=== PATIENT | female | born 1965 | race Caucasian/White ===

== ENCOUNTER 2017-03-15 15:06 | Inpatient (IN) | payer MEDICARE, OTHER ==
[~2017-03-15] VITALS: Ht 167.6 cm; Wt 105.7 kg
[~2017-03-15 15:06] MED LIST: ACET-868 GT; ALBU2.5V13 HHN; AMIN30LI4 GT; AMIO200T GT; ASCO500S2 GT; BISA10SU8 RC; BLOO-697 IN; CARV3.12 GT; CHLO15MO2 MM; DEXT38GE12 PO; DOCU50LI GT; Doxycycline Hyclate PO; ENAL2.5T GT; EPOE40002 SQ; FERR300L GT; FURO40SO2 GT; HYDR-3326 GT; Heparin Sodium,Porcine SQ; INSU100I19 SQ; INSU100V11 SQ; IPRA0.2S9 HHN; LACT10SO7 GT; LEVO50TA8 GT; LORA1TAB82 GT; MAGN400O6 GT; MULT1TAB11 GT; MUPI22OI7; NA P133E RC; NITR0.4T6 SL; NUT.237L30 GT; PANT40SU2 GT; POLY15DR40 EACHEYE; POLY17PO4 GT; POTA20PA15 GT; TOBR40VI2 INH; TRAM50TA2 GT
--- NOTE | 2017-03-15 15:20 | NUR ---
AAOX3, BIB PA FROM [facility] FOR ABLAB WITH ELEVATED BUN. PT CAME IN WITH VENT. SETTINGS: AC=18, WT=767, FI02=35%, PEEP=5. RESP IS EVEN AND UNLABORED WITH NAD NOTED. SKIN IS WARM AND DRY. G-TUBE NOTED INTACT. AWAITING MD FOR EVAL. PATIENT PLACED ON MONITOR AND WILL CONTINUOUSLY MONITOR THE PATIENT.
--- NOTE | 2017-03-15 15:24 | NUR ---
PT PLACED INTO [facility] VENT VIA TRACH SIZE #7 PORTEX CUFFED. VENT SETTINGS BELLOW PER RT TRANSPORT: AC 18 VT 550 FIO2 35% PEEP +5 BREATH SOUNDS RHONCHI BILATERAL, SXN MOD. AMNT PALE YELLOW SEMI THICK SECRETIONS. KEELEY @ BEDSIDE. Addendum: 03/15/17 at 1558 by ERIKA GROVES RT Amended: Links added.
[2017-03-15] MEDS ORDERED: ACID1TAB12 GT (15:36)
[2017-03-15] MEDS ORDERED: INSU100I19 SQ (15:36)
[2017-03-15] MEDS ORDERED: TRAM50TA2 PO (15:36)
[2017-03-15] MEDS ORDERED: OMEP20CA10 PO (15:36)
[2017-03-15] MEDS ORDERED: LISI2.5T2 GT (15:36)
[2017-03-15] MEDS ORDERED: AMIO200T2 GT (15:36)
[2017-03-15] MEDS ORDERED: EPOE1VIA7 SQ (15:36)
[2017-03-15] MEDS ORDERED: FOLI1TAB16 GT (15:36)
[2017-03-15] MEDS ORDERED: BUME1TAB4 GT (15:36)
[2017-03-15] MEDS ORDERED: HEPA10009 SQ (15:36)
[2017-03-15] MEDS ORDERED: HYDR10SY12 GT (15:36)
[2017-03-15 16:00] LABS: BASOPHILS # (AUTO) 0.1 /CMM (0.0-0.2); BASOPHILS % (AUTO) 0.8 % (0.0-2.0); EOSINOPHILS # (AUTO) 0.6 /CMM (0.0-0.7); EOSINOPHILS % (AUTO) 7.4 % (0.0-6.0); HEMATOCRIT 31 % (33-45); HEMOGLOBIN 9.8 g/dL (11.5-14.8); LYMPHOCYTES # (AUTO) 0.7 /CMM (0.8-4.8); LYMPHOCYTES % (AUTO) 8.8 % (20.0-44.0); MEAN CORPUSCULAR HEMOGLOBIN 30 PG (26.0-33.0); MEAN CORPUSCULAR HGB CONC 32 g/dl (31.0-36.0); MEAN CORPUSCULAR VOLUME 93 fL (82-100); MONOCYTES # (AUTO) 0.4 /CMM (0.1-1.30); MONOCYTES % (AUTO) 5.5 % (2.0-12.0); NEUTROPHILS # (AUTO) 6.3 /CMM (1.8-8.9); NEUTROPHILS % (AUTO) 77.5 % (43.0-81.0); PLATELET COUNT (AUTO) 437 /CMM (150-450); WHITE BLOOD COUNT (AUTO) 8.1 K/uL (4.3-11.0)
[2017-03-15 16:14] LABS: INR 1.14 (0.87-1.13)
[2017-03-15 16:16] LABS: ALBUMIN 2.5 g/dL (3.4-5.0); BILIRUBIN,DIRECT 0.2 mg/dL (0.0-0.2); BILIRUBIN,TOTAL 0.4 mg/dL (0.2-1.0); CALCIUM, SERUM 9.5 mg/dL (8.5-10.1); CREATININE 1.3 mg/dL (0.6-1.3); TOTAL PROTEIN, SERUM 8.5 g/dL (6.4-8.2)
[2017-03-15 16:23] LABS: APPEARANCE,URINE Clear (CLEAR); BILIRUBIN,URINE Negative (NEGATIVE); BLOOD, URINE Trace-intact Ery/uL (NEGATIVE); COLOR,URINE Yellow (YELLOW); KETONES,URINE Negative (NEGATIVE); LEUKOCYTE ESTERASE ,URINE Small (NEGATIVE); NITRITE, URINE Negative (NEGATIVE); PH,URINE 5.5 (5.0-8.0); PROTEIN,URINE Negative (NEGATIVE); UGLUCOSE Negative (NEGATIVE); UROBILINOGEN,URINE 0.2 EU/dL (0.2)
--- NOTE | 2017-03-15 16:30 | NUR ---
Patient is resting comfortably in bed with eyes closed. Easily aroused. VSS
[2017-03-15 16:34] LABS: ADD URINE CULTURE YES; BACTERIA,URINE 2+ /HPF (None Seen); RBC,URINE 0-3 /HPF (0-2)
[2017-03-15 16:35] LABS: SQUAMOUS EPITHELIAL CELL,UR Few /HPF (None Seen)
[2017-03-15] MEDS ORDERED: FUROSEMIDE 40 MG/4 ML VIAL ONE (17:28)
[2017-03-15] MEDS ORDERED: FUROSEMIDE 40 MG/4 ML VIAL IV ONE (17:30)
--- NOTE | 2017-03-15 17:39 | NUR ---
REPORT GIVEN TO JARRETT FREEMAN FOR [facility] TELE [phone]
--- NOTE | 2017-03-15 17:50 | NUR ---
REPORT GIVEN TO JARRETT COLUNGA FOR COURTNEY.
[2017-03-15] MEDS ORDERED: ASPIRIN 325 MG TABLET PO ONE (18:00)
--- NOTE | 2017-03-15 18:00 | NUR ---
TRANSFERED TO TELE ADRIANNE VIA ACLS PROTOCOL. NO S/S OF DISTRESS NOTED. RESP EVEN AND UNLABIRED.
--- NOTE | 2017-03-15 18:27 | NUR ---
PT. TRANSFERRED FROM ER TO [facility] BED 2. PT. USED SAME [facility] VENT AND PLUGGED INTO RED OUTLET. KEELEY @ BEDSIDE. Addendum: 03/15/17 at 1829 by ERIKA GROVES RT Amended: Links added.
[2017-03-15 18:40] VITALS: BP 104/65
--- NOTE | 2017-03-15 18:40 | NUR ---
SYSTEMS DEVELOPER NOTES PATIENT IN BED WITH MECHANICAL VENT. VENT SETTINGS NOTED. NO SOB OR ACUTE DISTRESS NOTED. PATIENT SEEN AND EXAMINED BY GERMAN AYON. IV INTACT PATENT. NO ORDERS NOTED YET. G-TUBE INTACT PATENT. PATIENT ALERT, ORIENTED X2, ORIENTED TO ROOM. CALL LIGHT WITHIN REACH. BED IN LOW LOCKED POSITION. WILL ENDORSE TO PM SHIFT.
--- NOTE | 2017-03-15 19:20 | NUR ---
DOULA NOTES RECEIVED PATIENT IN BED , AWAKE, ALERT/ O X3. ABLE TO MOUTH WORDS, TRACH IS INTACT AND PATENT WITH MECHANICAL VENT, SUCTIONED PRN. RT AT BEDSIDE AT THIS TIME. NO SOB OR ACUTE DISTRESS NOTED. IV SITE ON RIGHT HAND , INTACT AND PATENT, WITH NO S/S OF INFILTRATION NOTED. G-TUBE INTACT PATENT. ASPIRATION PRECAUTION OBSERVED. BODY ASSESSMENT DONE. ALL NEEDS ATTENDED AND MET. KEPT COMFORTABLE. CALL LIGHT WITHIN REACH. WILL CONT TO MONITOR.
[2017-03-15 19:30] VITALS: BP 102/58
[2017-03-15] MEDS ORDERED: ALBUTEROL FS 2.5 MG/0.5 ML VIAL.NEB HHN PRN (19:30)
[2017-03-15] MEDS ORDERED: IPRATROPIUM NEB FS 0.5 MG/2.5 ML AMPUL.NEB HHN PRN (19:30)
[2017-03-15] MEDS ORDERED: NA PHOS,M-B/NA PHOS,DI-BA 1 EA ENEMA RC PRN (19:30)
[2017-03-15] MEDS ORDERED: HYDROCODONE/APAP 5/325MG 1 EACH TABLET GT PRN ×2 (19:30)
[2017-03-15] MEDS ORDERED: hydrOXYzine HCL SYRUP 10 MG/5 ML UDC GT PRN (19:30)
[2017-03-15] MEDS ORDERED: DEXTROSE 50%-WATER 50 ML DISP.SYRIN IV PRN (19:30)
[2017-03-15] MEDS ORDERED: TRAMADOL HCL 50 MG TABLET GT PRN (19:30)
[2017-03-15] MEDS ORDERED: MAGNESIUM HYDROXIDE 30 ML UDC GT PRN ×2 (19:30)
[2017-03-15] MEDS ORDERED: ONDANSETRON HCL/PF 4 MG/2 ML VIAL IVP PRN (19:30)
[2017-03-15] MEDS ORDERED: ACETAMINOPHEN 325 MG TABLET PO PRN (19:30)
[2017-03-15] MEDS ORDERED: MAG HYDROX/AL HYDROX/SIMETH 30 ML UDC GT PRN (19:30)
[2017-03-15] MEDS ORDERED: Z GUARD REMEDY 2 OZ OINT TP PRN (19:30)
[2017-03-15] MEDS ORDERED: BISACODYL SUPP (10 MG) 10 MG/SUPP.RECT SUPP.RECT RC PRN (19:30)
[2017-03-15] MEDS: IPRATROPIUM NEB FS 0.5 MG/2.5 ML AMPUL.NEB HHN SCH (20:05)
[2017-03-15] MEDS: ALBUTEROL FS 2.5 MG/0.5 ML VIAL.NEB HHN SCH (20:05)
[2017-03-15 20:28] VITALS: BP 102/58
--- NOTE | 2017-03-15 20:30 | NUR ---
[facility] AND SPOKE WITH JAMI, RN REFRIGERATION INSULATOR, REGARDING EPOGEN , PER JAMI EPOGEN WASN'T GIVEN TO THE PT AT THEIR FACILITY TODAY AND THAT THE SCHED FOR EPOGEN IS Q M,W,F @ 5PM, PHARMACIST MADE AWARE.
[2017-03-15] MEDS: POLYVINYL ALCOHOL 15 ML BOTTLE EACHEYE SCH (22:27)
[2017-03-15] MEDS: LISINOPRIL (5MG) 5 MG TABLET GT SCH (22:27)
[2017-03-15] MEDS ORDERED: IV SET PRIMARY PUMP SET 1 EA INFUS.SET MC ONE (22:29)
[2017-03-15] MEDS: CHLORHEXIDINE GLUCONATE 15 ML UDC MM SCH (22:29)
[2017-03-15] MEDS: CEFTRIAXONE 1 G in IV D5W 50 ML IV SCH (22:29)
[2017-03-15] MEDS: DOCUSATE SODIUM LIQ 100 MG/10 ML UDC GT SCH (22:30)
[2017-03-15] MEDS: EPOETIN ALFA (10,000 UNIT) 10,000 UNIT/ML VIAL SQ SCH (22:30)
[2017-03-15] MEDS: HEPARIN SODIUM, PORCINE 5000 UNITS/1 ML VIAL SQ SCH (22:50)
[2017-03-15] MEDS: BLOOD SUGAR DIAGNOSTIC 1 EACH STRIP IN SCH (23:10)
[2017-03-15] MEDS: INSULIN DETEMIR 100 UNIT/ML CARTRIDGE SQ SCH (23:20)
[2017-03-15] MEDS: INSULIN REGULAR, HUMAN 100 UNIT/ML 3 ML VIAL SQ PRN (23:22)
[2017-03-15] MEDS: GLYTROL 1,000 ML BAG GT SCH (23:26)
[2017-03-16 00:25] VITALS: BP 95/61
[2017-03-16] MEDS: IPRATROPIUM NEB FS 0.5 MG/2.5 ML AMPUL.NEB HHN SCH ×4 (00:43→19:53)
[2017-03-16] MEDS: ALBUTEROL FS 2.5 MG/0.5 ML VIAL.NEB HHN SCH ×4 (00:43→19:53)
--- NOTE | 2017-03-16 01:52 | NUR ---
PLACED A CALL TO DR. BEDOLLA AND RELAYED TROPONIN LEVEL : 0.541, WITH NO NEW ORDER AT THIS TIME. PT ASYMPTOMATIC, DENIES ANY CHEST PAIN. BP : 102/58 AND HR : 68.
[2017-03-16 04:00] VITALS: BP 86/58
[2017-03-16] MEDS: BLOOD SUGAR DIAGNOSTIC 1 EACH STRIP IN SCH ×3 (06:23→17:26)
--- NOTE | 2017-03-16 06:50 | NUR ---
TUBE MAKER NOTES PATIENT IN BED , AWAKE, ALERT/ O X3. ABLE TO MOUTH WORDS, TRACH IS INTACT AND PATENT WITH MECHANICAL VENT, SUCTIONED PRN. NO SOB OR ACUTE DISTRESS NOTED. IV SITE ON RIGHT HAND , INTACT AND PATENT, WITH NO S/S OF INFILTRATION NOTED. G-TUBE INTACT PATENT. ASPIRATION PRECAUTION OBSERVED. GOOD SKIN CARE RENDERED. ALL NEEDS ATTENDED AND MET. KEPT COMFORTABLE. CALL LIGHT WITHIN REACH. WILL ENDORSE TO NEXT SHIFT FOR COURTNEY.
[2017-03-16 06:53] LABS: BASOPHILS % (AUTO) 0.7 % (0.0-2.0); EOSINOPHILS # (AUTO) 0.4 /CMM (0.0-0.7); HEMATOCRIT 26 % (33-45); HEMOGLOBIN 8.5 g/dL (11.5-14.8); LYMPHOCYTES % (AUTO) 13.3 % (20.0-44.0); MEAN CORPUSCULAR HEMOGLOBIN 30 PG (26.0-33.0); MEAN CORPUSCULAR HGB CONC 33 g/dl (31.0-36.0); MEAN CORPUSCULAR VOLUME 92 fL (82-100); MONOCYTES # (AUTO) 0.5 /CMM (0.1-1.30); MONOCYTES % (AUTO) 6.4 % (2.0-12.0); NEUTROPHILS # (AUTO) 5.3 /CMM (1.8-8.9); NEUTROPHILS % (AUTO) 74.6 % (43.0-81.0); PLATELET COUNT (AUTO) 404 /CMM (150-450); RDW COEFFICIENT OF VARIATION 20.2 (11.5-15.0); RED BLOOD CELL COUNT(AUTO) 2.85 MIL/uL (4.0-5.2); WHITE BLOOD COUNT (AUTO) 7.2 K/uL (4.3-11.0)
[2017-03-16 07:08] LABS: CALCIUM, SERUM 9.1 mg/dL (8.5-10.1); CREATININE 1.2 mg/dL (0.6-1.3); MAGNESIUM 3.2 mg/dL (1.8-2.4); PHOSPHORUS 4.8 mg/dL (2.5-4.9); POTASSIUM 5.4 mmol/L (3.5-5.1)
[2017-03-16 07:14] LABS: THYROID STIMULATING HORMONE 7.616 uIU/mL (0.358-3.74)
--- NOTE | 2017-03-16 07:30 | NUR ---
R DEVELOPER NOTES RECEIVED PATIENT AWAKE ON BED, AOX3. ABLE TO MOUTH WORDS, ON MECH VENT;TRACH INTACT AND PATENT, SUCTION PRN. NO SOB OR ACUTE DISTRESS NOTED. BREATHING EVEN AND NON LABORED. RIGHT HAND HL, INTACT AND PATENT, FLUSHES WELL. G-TUBE INTACT PATENT. ON HOLD FOR NOW, PT FOR KUB TODAY. CALL LIGHT WITHIN REACH. WILL CONT TO MONITOR.
[2017-03-16 08:00] VITALS: BP 89/51
--- NOTE | 2017-03-16 08:17 | NUR ---
GRAPHIC ILLUSTRATOR NOTES KYM LOPEZ MADE AWARE ABOUT PATIENT'S ABNORMAL LAB RESULTS AND LOW BP 89/51. WITH NEW ORDER TO CHECK ALBUMIN LEVEL. ORDERS CARRIED OUT.
[2017-03-16] MEDS: FOLIC ACID 1 MG TABLET GT SCH (08:41)
[2017-03-16] MEDS: POLYVINYL ALCOHOL 15 ML BOTTLE EACHEYE SCH ×2 (08:41→17:22)
[2017-03-16] MEDS: MULTIVITAMINS,THERAPEUTIC 1 UDTAB TABLET GT SCH (08:41)
[2017-03-16] MEDS: ASPIRIN 81 MG TAB.CHEW GT SCH (08:41)
[2017-03-16] MEDS: ASCORBIC ACID 500 MG TABLET GT SCH (08:42)
[2017-03-16] MEDS: ACIDOPHILUS/BULGARICUS 1 EACH TAB.CHEW GT SCH ×2 (08:42→17:20)
[2017-03-16] MEDS: LEVOTHYROXINE SODIUM 50 MCG TABLET GT SCH (08:42)
[2017-03-16] MEDS: CHLORHEXIDINE GLUCONATE 15 ML UDC MM SCH ×2 (08:42→21:00)
[2017-03-16] MEDS: FERROUS SULFATE UDC 300 MG/5 ML UDC GT SCH ×3 (08:42→17:20)
[2017-03-16] MEDS: PANTOPRAZOLE 40 MG/PACK PACK GT SCH (08:42)
[2017-03-16] MEDS: TRAMADOL HCL 50 MG TABLET GT SCH ×2 (08:43→17:21)
[2017-03-16] MEDS: AMIODARONE HCL 200 MG TABLET GT SCH (08:43)
[2017-03-16] MEDS: LISINOPRIL (5MG) 5 MG TABLET GT SCH ×2 (08:44→17:00)
[2017-03-16] MEDS: HEPARIN SODIUM, PORCINE 5000 UNITS/1 ML VIAL SQ SCH (08:44)
[2017-03-16] MEDS ORDERED: LISINOPRIL (5MG) 5 MG TABLET PO SCH (09:00)
--- NOTE | 2017-03-16 09:30 | NUR ---
DIRECTOR OF CAPITAL GIVING NOTES MOISE CATHETER INSERTED ORDERED BY KYM LOPEZ. STOOL FOR OB COLLECTED AND SENT TO THE LAB.
--- NOTE | 2017-03-16 10:00 | NUR ---
HSE MANAGER NOTES S/B DR. CARVAJAL WITH NEW ORDERS MADE. PATIENT FOR ABD'L ULTRASOUND PARACENTESIS, AND CANCELLED KUB. CONSENT SIGNED BY PT'S .
[2017-03-16] MEDS ORDERED: ALBUMIN 25% 12.5 GM/50 ML BOTTLE IV ONE (11:00)
--- NOTE | 2017-03-16 11:03 | NUR ---
BUSINESS ANALYST INTERN NOTES PARACENTESIS STARTED AT BEDSIDE. TOLERATING WELL
--- NOTE | 2017-03-16 11:30 | NUR ---
RESISTANCE WELDING MACHINE OPERATOR NOTES PARACENTESIS OUTPUT 6,550 MLS. PATIENT'S VS 89/51, MT 60, RR 20, TEMP 98. ALBUMIN IV STARTED ORDERED BY KYM LOPEZ.
[2017-03-16] MEDS ORDERED: IV SET PRIMARY 1 EA INFUS.SET MC ONE ×2 (11:56→17:29)
[2017-03-16 12:00] VITALS: BP 97/54
[2017-03-16] MEDS: ALBUMIN 25% 25 GM in PREMIX 1 EA IV SCH ×2 (12:17→17:23)
[2017-03-16] MEDS: INSULIN REGULAR, HUMAN 100 UNIT/ML 3 ML VIAL SQ PRN ×2 (12:19→17:27)
[2017-03-16 14:10] LABS: CREATININE, URINE < 13.0 MG/DL (30.0-125.0); UREA NITROGEN,URINE RANDOM 518 mg/dL (350-1000)
--- NOTE | 2017-03-16 14:12 | NUR ---
PULL OUT OPERATOR NOTES PATIENT'S GT RESIDUAL 200ML, GT FEEDING HELD. NOTIFIED BINDING FOLDER MACHINE JOHN, NO NEW ORDERS MADE. WILL CONTINUE TO MONITOR.
--- NOTE | 2017-03-16 14:45 | NUR ---
SCALDER NOTES GT FEEDING STARTED, WELL TOLERATED.
[2017-03-16 15:48] LABS: HEMOGLOBIN 8.9 g/dL (11.5-14.8)
[2017-03-16 16:00] VITALS: BP 91/49
[2017-03-16 17:01] LABS: GLUCOSE,BODY FLUID 160 mg/dL; PROTEIN, BODY FLUID 4.4 G/DL
[2017-03-16] MEDS ORDERED: IV SET PRIMARY PUMP SET 1 EA INFUS.SET MC ONE (17:28)
[2017-03-16 17:33] LABS: WBC, BODY FLUID 250 /cu. mm. (0-200)
[2017-03-16 17:45] LABS: APPEARANCE,SPUN,BODY FLUID CLEAR (CLEAR)
[2017-03-16 17:57] LABS: POLYNUCLEAR, BODY FLUID 53 % (0-25)
[2017-03-16 17:58] LABS: MACROPHAGES, BODY FLUID 7
--- NOTE | 2017-03-16 19:30 | NUR ---
GRANTS SPECIALIST NOTES ALL NEEDS ATTENDED AND ANTICIPATED. TURN AND REPOSITION Q2H. ENDORSED TO INCOMING SHIFT FOR CONTINUITY OF CARE.
--- NOTE | 2017-03-16 19:31 | NUR ---
RN NOTE RECEIVED REPORT. PT AWAKE AND RESPONSIVE, NO S/S OF ANY DISTRESS AT THIS TIME. DENIES CP/SOB/DIZZINESS. ON TRACHE/MECH VENT- SETTINGS ACCURATE. F/C INTACT AND DRAINING YELLOW URINE. G TUBE INTACT, FEEDING CONTINUES.. WILL CONT TO MONITOR. TELE SHOWS V-PACING IN 60'S.
[2017-03-16] MEDS: CEFTRIAXONE 1 G in IV D5W 50 ML IV SCH (22:17)
[2017-03-16] MEDS: DOCUSATE SODIUM LIQ 100 MG/10 ML UDC GT SCH (22:18)
[2017-03-16] MEDS: INSULIN DETEMIR 100 UNIT/ML CARTRIDGE SQ SCH (22:20)
[2017-03-17] MEDS: ALBUTEROL FS 2.5 MG/0.5 ML VIAL.NEB HHN SCH ×4 (01:39→19:31)
[2017-03-17] MEDS: IPRATROPIUM NEB FS 0.5 MG/2.5 ML AMPUL.NEB HHN SCH ×4 (01:39→19:31)
--- NOTE | 2017-03-17 02:05 | NUR ---
RN NOTE PT RESTING COMFORTABLY IN BED WITH EYESE CLOSED. NO DISTRESS NOTED AT THIS TTIME. WILL CONT TO MONITOR.
[2017-03-17] MEDS: INSULIN REGULAR, HUMAN 100 UNIT/ML 3 ML VIAL SQ PRN ×4 (02:16→17:29)
[2017-03-17] MEDS: GLYTROL 1,000 ML BAG GT SCH (03:48)
[2017-03-17] MEDS ORDERED: PROCHLORPERAZINE EDISYLATE 10 MG/2 ML VIAL IVP PRN (06:00)
[2017-03-17] MEDS: BLOOD SUGAR DIAGNOSTIC 1 EACH STRIP IN SCH ×4 (06:50→17:30)
--- NOTE | 2017-03-17 06:50 | NUR ---
RN NOTE NO SIGNIFICANT CHANGES OVERNIGHT. PT SLEPT WELL. NO S/S OF RESPIRATORY DISTRESS AT THIS TIME. VENT SETTINGS ACCURATE. SUCTIONING PROVIDED T/O SHIFT PRN. TOLERATING TUBE FEEDING WELL. IV INTACT AND PATENT. TELE SHOWS V PACING. KEPT CLEAN AND COMFORTABLE T/O SHIFT, WILL F/U WITH DAY SHIFT FOR COURTNEY.
[2017-03-17 07:02] VITALS: BP 128/64
--- NOTE | 2017-03-17 07:15 | NUR ---
SEWER HAND NOTES RECEIVED PATIENT IN BED, AWAKE. A/O X3. ON TELE MONITOR VPACING HR 60. PATIENT IS ON MECHANICAL VENT AC18 TV550 FiO2 36% PEEP 5 WITH PORTEX SIZE 7. PATIENT APPEARS ANXIOUS, NO SOB, SATING 98%. NO C/O PAIN AT THIS TIME. ON GLYTROL 45ML/HR, HOB ELEVATED. CALL LIGHT WITHIN REACH. WILL CONT TO MONITOR.
[2017-03-17 07:50] LABS: BASOPHILS % (AUTO) 0.5 % (0.0-2.0); EOSINOPHILS # (AUTO) 0.4 /CMM (0.0-0.7); EOSINOPHILS % (AUTO) 5.1 % (0.0-6.0); HEMATOCRIT 30 % (33-45); HEMOGLOBIN 9.7 g/dL (11.5-14.8); LYMPHOCYTES # (AUTO) 0.8 /CMM (0.8-4.8); LYMPHOCYTES % (AUTO) 10.9 % (20.0-44.0); MEAN CORPUSCULAR HEMOGLOBIN 29 PG (26.0-33.0); MEAN CORPUSCULAR HGB CONC 32 g/dl (31.0-36.0); MEAN CORPUSCULAR VOLUME 92 fL (82-100); MONOCYTES # (AUTO) 0.6 /CMM (0.1-1.30); MONOCYTES % (AUTO) 7.5 % (2.0-12.0); NEUTROPHILS # (AUTO) 5.8 /CMM (1.8-8.9); PLATELET COUNT (AUTO) 460 /CMM (150-450); RDW COEFFICIENT OF VARIATION 20.6 (11.5-15.0); WHITE BLOOD COUNT (AUTO) 7.6 K/uL (4.3-11.0)
[2017-03-17 08:00] VITALS: BP 128/64
[2017-03-17] MEDS: ACIDOPHILUS/BULGARICUS 1 EACH TAB.CHEW GT SCH ×2 (08:42→17:02)
[2017-03-17] MEDS: FERROUS SULFATE UDC 300 MG/5 ML UDC GT SCH ×3 (08:42→17:02)
[2017-03-17] MEDS: FOLIC ACID 1 MG TABLET GT SCH (08:42)
[2017-03-17] MEDS: LISINOPRIL (5MG) 5 MG TABLET GT SCH ×2 (08:43→17:00)
[2017-03-17] MEDS: ASPIRIN 81 MG TAB.CHEW GT SCH (08:43)
[2017-03-17] MEDS: MULTIVITAMINS,THERAPEUTIC 1 UDTAB TABLET GT SCH (08:43)
[2017-03-17] MEDS: LEVOTHYROXINE SODIUM 50 MCG TABLET GT SCH (08:43)
[2017-03-17] MEDS: PANTOPRAZOLE 40 MG/PACK PACK GT SCH (08:44)
[2017-03-17] MEDS: ASCORBIC ACID 500 MG TABLET GT SCH (08:44)
[2017-03-17] MEDS: CHLORHEXIDINE GLUCONATE 15 ML UDC MM SCH ×2 (08:45→21:49)
[2017-03-17] MEDS: TRAMADOL HCL 50 MG TABLET GT SCH ×2 (08:45→17:02)
[2017-03-17] MEDS: POLYVINYL ALCOHOL 15 ML BOTTLE EACHEYE SCH ×2 (08:53→17:12)
[2017-03-17] MEDS: LORAZEPAM 1 MG TABLET GT PRN ×2 (09:02→21:50)
[2017-03-17] MEDS: AMIODARONE HCL 200 MG TABLET GT SCH (09:02)
[2017-03-17 09:03] LABS: CREATININE 1.3 mg/dL (0.6-1.3); MAGNESIUM 3.3 mg/dL (1.8-2.4); PHOSPHORUS 4.6 mg/dL (2.5-4.9); POTASSIUM 4.7 mmol/L (3.5-5.1)
--- NOTE | 2017-03-17 09:07 | NUR ---
PATIENT APPEARS ANXIOUS AND RESTLESS. NO SOB, SATING 98%. SUCTION PRN. GIVEN ATIVAN 1MG VIA GT PRN, WILL REASSESS.
--- NOTE | 2017-03-17 09:52 | NUR ---
HEPARIN SQ WAS DC YESTERDAY 03/16/17. CHAIR FRAME BUILDER-AYON NOTES HEPARIN WAS PLACE ON HOLD. VTE SCORE 5. SPOKE TO CHAIR FRAME BUILDER-AYON ORDERED TO CONTINUE HEPARIN 5000 UNITS SQ Q12HR NOTED AND ACKNOWLEDGED.
[2017-03-17] MEDS: FUROSEMIDE 40 MG/4 ML VIAL IV SCH ×2 (10:27→17:03)
[2017-03-17] MEDS: HEPARIN SODIUM, PORCINE 5000 UNITS/1 ML VIAL SQ SCH ×2 (10:43→21:00)
--- NOTE | 2017-03-17 11:44 | NUR ---
PATIENT IS SEEN BY DR. MCGRATH TODAY, ORDERED TO HOLD TUBE FDG MN, EGD TOMORROW. NOTED AND ACKNOWLEDGED.
[2017-03-17 11:57] LABS: ABG BASE EXCESS 6.7 mmol/L; ABG PCO2 42.6 mmHg (35.0-45.0); ABG PH 7.478 (7.350-7.450); ABG PO2 100.4 mmHg (75.0-100.0); ABG TOTAL HEMOGLOBIN 9.8 G/dL (12.0-16.0); AaDO2 99.6 mmHg; COHb 0.9 % (0.5-1.5); MetHb 1.1 % (0.0-1.5); O2Hb 95.1 % (94.0-97.0); PEEP,BG 5 cm H2O; SITE, ABG Right Radial; VT, ABG 550 mL
[2017-03-17 12:00] VITALS: BP 101/46
--- NOTE | 2017-03-17 12:18 | NUR ---
BS 165MG/DL. GIVEN 3 UNITS INSULIN REGULAR SQ PER ISS COVERAGE.
--- NOTE | 2017-03-17 13:31 | NUR ---
PATIENT IS SEEN BY KYM-NANY TODAY, ORDERED CT ABDOMEN PELVIS WO CONTRAST, NOTED AND ACKNOWLEDGED.
[2017-03-17 16:00] VITALS: BP 99/47
--- NOTE | 2017-03-17 17:31 | NUR ---
BS 155MG/DL. GIVEN 2 UNITS INSULIN REGULAR SQ PER ISS COVERAGE.
--- NOTE | 2017-03-17 17:45 | NUR ---
PATIENT TRANSPORTER TO CT SCAN
--- NOTE | 2017-03-17 18:16 | NUR ---
ADJUNCT FACULTY FOR MEDICAL TERMINOLOGY CLOSING NOTES PATIENT IN BED IS BACK FROM RADIOLOGY DEPT. FOR CT ABDOMEN/PELVIS WO CONTRAST. VENT SETTINGS REMAINS THE SAME, TOLERATING WELL, NO SOB NOTED. BLOOD SUGAR MONITORED, NO S/S OF HYPO/HYPERGLYCEMIA NOTED. V-PACING HR 70 ON TELE MONITOR. CALL LIGHT WITHIN REACH. FOR EGD TOMORROW 03/18/17, CONSENT FORM WAS SIGNED AND PLACE IN THE CHART. HOLD GTUBE FEEDING MN ORDERED. WILL ENDORSE TO TEACHER TUTOR RN FOR CONTINUITY OF CARE.
--- NOTE | 2017-03-17 19:05 | NUR ---
RN NOTE RECEIEVD REPORT. PT IN NO DISTRESS AT THIS TIME, DENIES SOB/N/V. VENT SETTINGS ACCURATE. IV INTACT AND PATENT. FAMILY AT BEDSIDE. TELE SHOWING V-PACING. G TUBE INTACT AND PATENT, FEEDING CONTINUES. CALL LIGHT IN REACH, WILL CONT TO MONITOR.
[2017-03-17 20:30] VITALS: BP 105/59
--- NOTE | 2017-03-17 21:00 | NUR ---
RN NOTE DUE MEDS GIVEN. LEVEMIR HELD DUE TO NPO AT MIDNIGHT. NO S/S OF HYPO/HYPER-GLYCEMIA. HEPARIN HELD DUE TO EGD TOMORROW.
[2017-03-17] MEDS: DOCUSATE SODIUM LIQ 100 MG/10 ML UDC GT SCH (21:49)
[2017-03-17] MEDS: CEFTRIAXONE 1 G in IV D5W 50 ML IV SCH (21:49)
[2017-03-17] MEDS: INSULIN DETEMIR 100 UNIT/ML CARTRIDGE SQ SCH (21:50)
[2017-03-18] VITALS (8 sets, daily range): BP systolic 92–107; BP diastolic 48–62
[2017-03-18] MEDS ORDERED: IV D5/ 0.9% NACL 1,000 ML IV PRN
[2017-03-18] MEDS ORDERED: IV D5/0.45 NACL 1,000 ML IV ONE
[2017-03-18] MEDS: BLOOD SUGAR DIAGNOSTIC 1 EACH STRIP IN SCH ×5 (00:55→23:57)
[2017-03-18] MEDS: ALBUTEROL FS 2.5 MG/0.5 ML VIAL.NEB HHN SCH ×4 (01:16→20:35)
[2017-03-18] MEDS: IPRATROPIUM NEB FS 0.5 MG/2.5 ML AMPUL.NEB HHN SCH ×4 (01:16→20:35)
[2017-03-18] MEDS ORDERED: IV D5/ 0.9% NACL 1,000 ML IV ONE (01:21)
[2017-03-18] MEDS ORDERED: IV SET PRIMARY PUMP SET 1 EA INFUS.SET MC ONE ×2 (01:22→11:12)
--- NOTE | 2017-03-18 06:54 | NUR ---
RN NOTE NO SIGNIFICANT CHANGES THIS SHIFT. PT RESTING WITH EYES CLOSED, NO S/S O F ANY DISTRESS AT THIS TIME. ON [facility] VENT - SETTINGS ACCURATE. TELE SHOWING V-PACING IN 60'S. F/C INTACT AND DRAINING. IV INTACT AND PATENT, TOLERATING FLUIDS WELL. KEPT NPO SINCE FL, FOR EGD TODAY. KEPT CLEAN AND COMFORTABLE. REPOSITIONED Q2HRS. CALL LIGHT IN REACH.
[2017-03-18 07:11] LABS: BASOPHILS # (AUTO) 0.1 /CMM (0.0-0.2); BASOPHILS % (AUTO) 0.8 % (0.0-2.0); EOSINOPHILS # (AUTO) 0.5 /CMM (0.0-0.7); EOSINOPHILS % (AUTO) 7.7 % (0.0-6.0); HEMATOCRIT 26 % (33-45); HEMOGLOBIN 8.2 g/dL (11.5-14.8); LYMPHOCYTES # (AUTO) 0.8 /CMM (0.8-4.8); LYMPHOCYTES % (AUTO) 14.1 % (20.0-44.0); MEAN CORPUSCULAR HEMOGLOBIN 29 PG (26.0-33.0); MEAN CORPUSCULAR HGB CONC 32 g/dl (31.0-36.0); MEAN CORPUSCULAR VOLUME 92 fL (82-100); MONOCYTES # (AUTO) 0.5 /CMM (0.1-1.30); MONOCYTES % (AUTO) 7.9 % (2.0-12.0); NEUTROPHILS # (AUTO) 4.1 /CMM (1.8-8.9); NEUTROPHILS % (AUTO) 69.5 % (43.0-81.0); PLATELET COUNT (AUTO) 350 /CMM (150-450); RDW COEFFICIENT OF VARIATION 20.3 (11.5-15.0); WHITE BLOOD COUNT (AUTO) 5.9 K/uL (4.3-11.0)
--- NOTE | 2017-03-18 07:15 | NUR ---
SUPERVISOR CLAIMS NOTES RECEIVED PATIENT IN BED, SLEEPING, AROUSES EASILY. ON VENT WITH THE SAME SETTINGS. NOT IN DISTRESS. TELE MONITOR V PACING HR 60. GTUBE FEEDING HELD, FOR EGD TODAY. APPEARS COMFORTABLE IN BED, NO MOANING NOTED. CALL LIGHT WITHIN REACH. WILL CONT TO MONITOR. ON CONTACT ISOLATION FOR ESBL URINE.
[2017-03-18 07:35] LABS: CALCIUM, SERUM 8.8 mg/dL (8.5-10.1); CREATININE 1.2 mg/dL (0.6-1.3); MAGNESIUM 3.2 mg/dL (1.8-2.4); PHOSPHORUS 4.4 mg/dL (2.5-4.9); POTASSIUM 4.2 mmol/L (3.5-5.1)
[2017-03-18] MEDS: ACIDOPHILUS/BULGARICUS 1 EACH TAB.CHEW GT SCH ×2 (08:43→16:35)
[2017-03-18] MEDS: CHLORHEXIDINE GLUCONATE 15 ML UDC MM SCH ×2 (08:43→21:26)
[2017-03-18] MEDS: FOLIC ACID 1 MG TABLET GT SCH (08:43)
[2017-03-18] MEDS: LEVOTHYROXINE SODIUM 50 MCG TABLET GT SCH (08:43)
[2017-03-18] MEDS: LISINOPRIL (5MG) 5 MG TABLET GT SCH ×2 (08:44→16:38)
[2017-03-18] MEDS: POLYVINYL ALCOHOL 15 ML BOTTLE EACHEYE SCH ×2 (08:45→16:37)
[2017-03-18] MEDS: FERROUS SULFATE UDC 300 MG/5 ML UDC GT SCH ×3 (08:45→16:36)
[2017-03-18] MEDS: AMIODARONE HCL 200 MG TABLET GT SCH (08:45)
[2017-03-18] MEDS: ASPIRIN 81 MG TAB.CHEW GT SCH (08:46)
[2017-03-18] MEDS: HEPARIN SODIUM, PORCINE 5000 UNITS/1 ML VIAL SQ SCH ×2 (08:46→23:55)
[2017-03-18] MEDS: ASCORBIC ACID 500 MG TABLET GT SCH (08:48)
[2017-03-18] MEDS: TRAMADOL HCL 50 MG TABLET GT SCH ×2 (08:49→16:38)
[2017-03-18] MEDS: MULTIVITAMINS,THERAPEUTIC 1 UDTAB TABLET GT SCH (08:49)
[2017-03-18] MEDS: PANTOPRAZOLE 40 MG/PACK PACK GT SCH (08:49)
--- NOTE | 2017-03-18 08:56 | NUR ---
ASPIRIN, HEPARIN SQ NON ADMINISTERED. PATIENT TO HAVE EGD PROCEDURE TODAY.
[2017-03-18 08:58] LABS: INR 1.21 (0.87-1.13); PROTHROMBIN TIME 13.1 SECS (9.5-12.7)
[2017-03-18] MEDS ORDERED: MEROPENEM 500 MG in IV NS 0.9% 50 ML IV SCH (09:00)
[2017-03-18 09:54] LABS: IRON, SERUM 30 ug/dl (50-175); TOTAL IRON BINDING CAPACITY 175 ug/dl (250-450)
[2017-03-18] MEDS: LEVOFLOXACIN 750 MG /D5W 150ML 750 MG in PREMIX 1 EA IV SCH (11:13)
[2017-03-18] MEDS: INSULIN REGULAR, HUMAN 100 UNIT/ML 3 ML VIAL SQ PRN ×2 (12:30→17:46)
--- NOTE | 2017-03-18 12:30 | NUR ---
BS 195MG/DL. INSULIN COVERAGE NON ADMINISTERED, GTUBE FEEDING WAS HELD, FOR EGD TODAY. PATIENT HX OF DIABETES.
[2017-03-18] MEDS ORDERED: ROCURONIUM BROMIDE 50 MG/5 ML ONE (13:04)
--- NOTE | 2017-03-18 13:20 | NUR ---
EGD PROCEDURE BY DR. GAMBLE IN PROGRESS.
--- NOTE | 2017-03-18 13:50 | NUR ---
POST EGD, DR. GAMBLE ORDERED TO RESUME TUBE FEEDING, NOTED AND ACKNOWLEDGED.
[2017-03-18] MEDS: GLYTROL 1,000 ML BAG GT SCH (13:51)
[2017-03-18] MEDS: EPOETIN ALFA (10,000 UNIT) 10,000 UNIT/ML VIAL SQ SCH (16:05)
--- NOTE | 2017-03-18 17:46 | NUR ---
BS 193MG/DL. GIVEN 3 UNITS INSULIN REGULAR SQ PER ISS COVERAGE.
--- NOTE | 2017-03-18 18:55 | NUR ---
SUBSTATION SUPERVISOR CLOSING NOTES PATIENT IN BED, AWAKE, A/O X3. ON TELE MONITOR V PACING HR 64. VENT SETTINGS REMAINS THE SAME, BREATHING TREATMENT GIVEN BY RT. SUCTION PRN. BLOOD SUGAR MONITORED, NO S/S OF HYPO/HYPERGLYCEMIA. IV IN RIGHT WRIST PATENT AND INTACT, ON ANTIBIOTIC WITH NO ADVERSE REACTION. AFEBRILE. PATIENT HAD BOWEL MOVEMENT TODAY, PERINEAL CARE PROVIDED. TURN AND REPOSITION, ON ISOFLEX BED. MOISE CATH INTACT, DRAINING TO GRAVITY, URINE CLEAR AND YELLOW. GTUBE FEEDING GLYTROL AT 45ML/HR, TOLERATING WELL. AT THE BED SIDE. ON CONTACT ISOLATION ESBL URINE, CONTACT PRECAUTION OBSERVED. PATIENT IS SEEN BY DR. ANABELA HARGROVE TODAY FOR CONSULT. WILL ENDORSE TO SEISMOMETER OPERATOR RN FOR CONTINUITY OF CARE.
--- NOTE | 2017-03-18 19:15 | NUR ---
PRESCHOOL TEACHER'S ASSISTANT OPENING NOTES: RECEIVED PT IN BED AWAKE A/O X3 WITH AT BEDSIDE. ON TELE MONITOR AND IS V PACING AT HR 60. VENT SETTINGS ARE: AC 18, TV 550, FIO2 36%, PEEP 5, PORTEX #7. IV IS IN R WRIST #20 AND IS PATENT AND INTACT. NO SIGNS OR SYMPTOMS OF DISTRESS NOTED AT THIS TIME. PT IS ON ISOFLEX BED. MOISE CATH IS INTACT WITH DRAINAGE. PT HAS G TUBE FEEDING OF GLYTROL AT 45 ML/HR AND IS TOLERATING WELL. KEPT CLEAN, DRY, AND COMFORTABLE. CALL LIGHT WITHIN PT'S REACH. BED KEPT IN LOCKED, LOWEST POSITION, AND SIDE RAILS X2 UP. WILL CONTINUE TO MONITOR PT.
[2017-03-18] MEDS: DOCUSATE SODIUM LIQ 100 MG/10 ML UDC GT SCH (21:26)
--- NOTE | 2017-03-18 21:26 | NUR ---
BUNCHER HAND NOTES: PT REFUSED COLACE 20ML. EXPLAINED TO PATIENT THE RISKS AND BENEFITS OF MEDS.
[2017-03-18] MEDS: INSULIN DETEMIR 100 UNIT/ML CARTRIDGE SQ SCH (21:41)
[2017-03-19] MEDS: INSULIN REGULAR, HUMAN 100 UNIT/ML 3 ML VIAL SQ PRN ×3 (00:11→18:09)
[2017-03-19 00:41] VITALS: BP 103/66
[2017-03-19] MEDS: IPRATROPIUM NEB FS 0.5 MG/2.5 ML AMPUL.NEB HHN SCH ×3 (01:20→13:23)
[2017-03-19] MEDS: ALBUTEROL FS 2.5 MG/0.5 ML VIAL.NEB HHN SCH ×3 (01:20→13:23)
[2017-03-19 04:12] VITALS: BP 102/50
[2017-03-19] MEDS: BLOOD SUGAR DIAGNOSTIC 1 EACH STRIP IN SCH ×3 (05:22→18:12)
[2017-03-19 06:55] VITALS: BP 105/54
--- NOTE | 2017-03-19 07:01 | NUR ---
OPTICAL SALES ASSOCIATE CLOSING NOTES: ALL NEEDS WERE ATTENDED. PT IN BED ASLEEP. ON TELE READING V PACING AT 60. CALL LIGHT WITHIN PT'S REACH. BED KEPT IN LOCKED, LOWEST POSITION, AND SIDE RAILS X2 UP. PT KEPT CLEAN, DRY, AND COMFORTABLE. IV IS ON R WRIST #20 AND IS PATENT AND INTACT. PT'S BLOOD SUGAR WAS 146. 2 UNITS OF HUMULIN R INSULIN WAS GIVEN. VENT SETTINGS ARE AC:18, TV: 550, FI02: 36%, PEEP: 5. PORTEX #7 FOR PT'S TRACH. PT IS NPO. GTUBE FEEDING OF GLYTROL AT 45ML/HR. HELD FEEDING DUE TO 100ML RESIDUAL. MOISE CATH OUTPUT WAS 450ML. WILL ENDORSE TO AM NURSE FOR CONTINUITY OF CARE.
--- NOTE | 2017-03-19 07:30 | NUR ---
RECEIVED PT. ALERT,ON VENT,SETTINGS UNCHANGED.F/C TO GRAVITY DRAINAGE.
[2017-03-19 07:40] LABS: BASOPHILS % (AUTO) 0.7 % (0.0-2.0); EOSINOPHILS # (AUTO) 0.5 /CMM (0.0-0.7); EOSINOPHILS % (AUTO) 7.3 % (0.0-6.0); HEMATOCRIT 28 % (33-45); HEMOGLOBIN 8.8 g/dL (11.5-14.8); LYMPHOCYTES # (AUTO) 0.7 /CMM (0.8-4.8); LYMPHOCYTES % (AUTO) 11.5 % (20.0-44.0); MEAN CORPUSCULAR HEMOGLOBIN 29 PG (26.0-33.0); MEAN CORPUSCULAR HGB CONC 32 g/dl (31.0-36.0); MEAN CORPUSCULAR VOLUME 92 fL (82-100); MONOCYTES # (AUTO) 0.5 /CMM (0.1-1.30); MONOCYTES % (AUTO) 7.4 % (2.0-12.0); NEUTROPHILS # (AUTO) 4.7 /CMM (1.8-8.9); NEUTROPHILS % (AUTO) 73.1 % (43.0-81.0); PLATELET COUNT (AUTO) 370 /CMM (150-450); RED BLOOD CELL COUNT(AUTO) 2.99 MIL/uL (4.0-5.2); WHITE BLOOD COUNT (AUTO) 6.5 K/uL (4.3-11.0)
[2017-03-19 08:03] LABS: CALCIUM, SERUM 8.6 mg/dL (8.5-10.1); CREATININE 1.3 mg/dL (0.6-1.3); POTASSIUM 4.1 mmol/L (3.5-5.1)
--- NOTE | 2017-03-19 09:00 | NUR ---
SPOUSE AT BEDSIDE.
--- NOTE | 2017-03-19 10:00 | NUR ---
TUBE FEEDING OFF FOR SOMETIME IN AM RESIDUALS HIGH.DR. HOOKER INFORMED.
[2017-03-19] MEDS: HEPARIN SODIUM, PORCINE 5000 UNITS/1 ML VIAL SQ SCH (11:11)
[2017-03-19] MEDS: FERROUS SULFATE UDC 300 MG/5 ML UDC GT SCH ×3 (11:13→18:09)
[2017-03-19] MEDS: CHLORHEXIDINE GLUCONATE 15 ML UDC MM SCH (11:13)
[2017-03-19] MEDS: ASCORBIC ACID 500 MG TABLET GT SCH (11:13)
[2017-03-19] MEDS: LEVOTHYROXINE SODIUM 50 MCG TABLET GT SCH (11:14)
[2017-03-19] MEDS: ACIDOPHILUS/BULGARICUS 1 EACH TAB.CHEW GT SCH ×2 (11:14→18:10)
[2017-03-19] MEDS: TRAMADOL HCL 50 MG TABLET GT SCH ×2 (11:14→18:10)
[2017-03-19] MEDS: ASPIRIN 81 MG TAB.CHEW GT SCH (11:15)
[2017-03-19] MEDS: LISINOPRIL (5MG) 5 MG TABLET GT SCH ×2 (11:15→17:00)
[2017-03-19] MEDS: PANTOPRAZOLE 40 MG/PACK PACK GT SCH (11:15)
[2017-03-19] MEDS: MULTIVITAMINS,THERAPEUTIC 1 UDTAB TABLET GT SCH (11:15)
[2017-03-19] MEDS: FOLIC ACID 1 MG TABLET GT SCH (11:15)
[2017-03-19] MEDS: LEVOFLOXACIN 750 MG /D5W 150ML 750 MG in PREMIX 1 EA IV SCH (11:26)
[2017-03-19] MEDS: POLYVINYL ALCOHOL 15 ML BOTTLE EACHEYE SCH ×2 (11:27→18:11)
[2017-03-19 12:00] VITALS: BP 102/42
[2017-03-19] MEDS ORDERED: FUROSEMIDE 40 MG/4 ML VIAL IV SCH (12:30)
--- NOTE | 2017-03-19 14:30 | NUR ---
TUBE FEEDING RESTARTED AT 1430 DUE TO LEVAQUIN MED.
[2017-03-19] MEDS: GLYTROL 1,000 ML BAG GT SCH (14:32)
[2017-03-19 16:00] VITALS: BP 102/57
[2017-03-19 17:30] VITALS: BP 102/57
[2017-03-19] MEDS: AMIODARONE HCL 200 MG TABLET GT SCH (17:30)
--- NOTE | 2017-03-19 18:00 | NUR ---
VENT SETTINGS UNCHANGED,DC PHOTOS DONE EXCEPT FOR SACRAL AREA SPOUSE REFUSING AT THIS TIME.F/C OUTPUT GOOD.
--- NOTE | 2017-03-19 19:00 | NUR ---
REPORT CALLED TO FACILITY.
--- NOTE | 2017-03-19 20:04 | NUR ---
MS/RN OPENING NOTES PATIENT IN BED ABLE TO VERBALIZE NEEDS. NO S/S OF SOB OR DISTRESS. RECEIVED ENDORSEMENT FROM AM RN REGARDING PLAN OF CARE. WILL CONTINUE TO MONITOR. Addendum: 03/19/17 at 2007 by COLLEEN WU RN PLS DISREGARD ABOVE NOTES.IN ERROR
--- NOTE | 2017-03-19 20:08 | NUR ---
TELE/RN OPENING NOTES PATIENT IN BED ON ISOLATION DUE TO ESBL. ALERT, AWAKE AND ABLE TO MAKE SOUNDS AND W/ GOOD EYE CONTACT. CAN FOLLOW SIMPLE COMMANDS AND RESPOND WITH NOD. RECVEIVED [facility] AND AM RN GAVE REPORT WILL REMOVE IV ON SITE AND TELE MONITOR. AND CONTINUE TO TAKE PICTURE OF BACK SIDE .WILL CONTINUE TO MONITOR AND ASSIST IN D/C .
--- NOTE | 2017-03-19 20:55 | NUR ---
TELE/RN NOTES TRANSPORTATION ARRIVED 2054 WITH 2 EMT AND RT FOR [facility]REPORTED VENT SETTING,BS W/ COVERAGE.BELONGINGS CHECKS AND MEDICATION RECONCILLAION. PATIENT FAMILY INFORMED AND MADE AWARE.
== END 2017-03-19 21:20 | DRG 280 ==
LOC: ER 15:07 → TELE 17:31
PROVIDERS: ADMIT Contractor; ATTEND Contractor
PROC: 5A1955Z Respiratory Ventilation, Greater than 96 Consecutive Hours (ICD-10-PCS; 2017-03-15)
PROC: 0W9G3ZZ Drainage of Peritoneal Cavity, Percutaneous Approach (ICD-10-PCS; 2017-03-16)
PROC: 0DB68ZX Excision of Stomach, Via Natural or Artificial Opening Endoscopic, Diagnostic (ICD-10-PCS; principal; 2017-03-18 14:00)
DX: I21.4 Non-ST elevation (NSTEMI) myocardial infarction (principal); I50.23 Acute on chronic systolic (congestive) heart failure; E44.0 Moderate protein-calorie malnutrition; E87.1 Hypo-osmolality and hyponatremia; G71.0 Muscular dystrophy; J96.12 Chronic respiratory failure with hypercapnia; J96.11 Chronic respiratory failure with hypoxia; N39.0 Urinary tract infection, site not specified; N17.9 Acute kidney failure, unspecified; I42.9 Cardiomyopathy, unspecified; R18.8 Other ascites; Z99.11 Dependence on respirator [ventilator] status; I25.10 Atherosclerotic heart disease of native coronary artery without angina pectoris; I48.91 Unspecified atrial fibrillation; R13.10 Dysphagia, unspecified; Z93.1 Gastrostomy status; Z93.0 Tracheostomy status; I11.0 Hypertensive heart disease with heart failure; E03.9 Hypothyroidism, unspecified; D64.9 Anemia, unspecified; E11.9 Type 2 diabetes mellitus without complications; Z68.37 Body mass index [BMI] 37.0-37.9, adult; B35.3 Tinea pedis; D25.2 Subserosal leiomyoma of uterus; D69.2 Other nonthrombocytopenic purpura; E66.01 Morbid (severe) obesity due to excess calories; I34.0 Nonrheumatic mitral (valve) insufficiency; I87.2 Venous insufficiency (chronic) (peripheral); K76.0 Fatty (change of) liver, not elsewhere classified
CPT/HCPCS: 31720; 36415; 36600; 71010-TC; 76942-TC; 80048-TC; 80061-TC; 80076-TC; 81000-TC; 82040-TC; 82272-TC; 82570-TC; 82962-TC; 83540-TC; 83735-TC; 83880; 84100-TC; 84443-TC; 84484-TC; 85025-TC; 85027-TC; 85730-TC; 87070-TC; 87081-TC; 87086-TC; 87186-TC; 88305-TC; 88312-TC; 88313-TC; 88342; 89051-TC; 93307-TC; 94002-TC; 94003-TC; 94760-TC; A4216; A4606; A6402; A6403; J0696; J0780; J0885; J1644; J1815; J1940; J1956; J2001; J2185; J2704; J7042; J7060; P9047; Q0177; Z7610

== ENCOUNTER 2017-05-14 10:40 | Inpatient (IN) | payer MEDICARE, OTHER ==
[~2017-05-14] VITALS: Ht 167.6 cm; Wt 81.6 kg
[~2017-05-14 10:40] MED LIST changes: +ACID1TAB12 GT; -AMIN30LI4 GT; -AMIO200T GT; +AMIO200T2 GT; +BUME1TAB4 GT; -CARV3.12 GT; -DEXT38GE12 PO; -Doxycycline Hyclate PO; -ENAL2.5T GT; +EPOE1VIA7 SQ; -EPOE40002 SQ; +FOLI1TAB16 GT; -FURO40SO2 GT; +HEPA10009 SQ; +HYDR10SY12 GT; -Heparin Sodium,Porcine SQ; -LACT10SO7 GT; +LISI2.5T2 GT; -MUPI22OI7; -NITR0.4T6 SL; +OMEP20CA10 PO; -PANT40SU2 GT; -POLY17PO4 GT; -POTA20PA15 GT; -TOBR40VI2 INH
--- NOTE | 2017-05-14 10:45 | NUR ---
PATIENT BIB RA D/T ABDOMINAL DISTENTION. PATIENT TRANSFERRED TO ER 6 STRETCHER. VITALS STABLE. COMFORT AND SAFETY MEASURES IN PLACE, AWAITING MD ORDERS.
[2017-05-14 11:58] LABS: BASOPHILS # (AUTO) 0.2 /CMM (0.0-0.2); BASOPHILS % (AUTO) 2.9 % (0.0-2.0); EOSINOPHILS # (AUTO) 0.1 /CMM (0.0-0.7); EOSINOPHILS % (AUTO) 1.4 % (0.0-6.0); HEMATOCRIT 31 % (33-45); HEMOGLOBIN 9.6 g/dL (11.5-14.8); LYMPHOCYTES # (AUTO) 0.4 /CMM (0.8-4.8); MEAN CORPUSCULAR HEMOGLOBIN 29 PG (26.0-33.0); MEAN CORPUSCULAR HGB CONC 31 g/dl (31.0-36.0); MEAN CORPUSCULAR VOLUME 94 fL (82-100); MONOCYTES # (AUTO) 0.4 /CMM (0.1-1.30); MONOCYTES % (AUTO) 4.6 % (2.0-12.0); NEUTROPHILS # (AUTO) 7.3 /CMM (1.8-8.9); NEUTROPHILS % (AUTO) 86.1 % (43.0-81.0); PLATELET COUNT (AUTO) 378 /CMM (150-450); RDW COEFFICIENT OF VARIATION 18.8 (11.5-15.0); RED BLOOD CELL COUNT(AUTO) 3.28 MIL/uL (4.0-5.2); WHITE BLOOD COUNT (AUTO) 8.4 K/uL (4.3-11.0)
[2017-05-14] MEDS ORDERED: LEVO75TA7 GT (12:08)
[2017-05-14 12:12] LABS: INR 1.29 (0.87-1.13); PROTHROMBIN TIME 13.6 SECS (9.5-12.7)
[2017-05-14 12:20] LABS: ALBUMIN 2.3 g/dL (3.4-5.0); BILIRUBIN,DIRECT 0.3 mg/dL (0.0-0.2); BILIRUBIN,TOTAL 0.7 mg/dL (0.2-1.0); CREATININE 1.2 mg/dL (0.6-1.3); POTASSIUM 5.5 mmol/L (3.5-5.1); TOTAL PROTEIN, SERUM 7.7 g/dL (6.4-8.2)
[2017-05-14 12:29] LABS: TROPONIN I 0.753 ng/mL (0.00-0.056)
--- NOTE | 2017-05-14 12:42 | NUR ---
NEW IV STARTED RIGHT AC, 20 GAUGE. BLOOD DRAWN, SENT TO LAB FOR TESTING.
--- NOTE | 2017-05-14 12:46 | NUR ---
Note sarah in EDM - 05/14/17 at 1251 by MARANDA PATIENT BIB RA D/T ABDOMINAL DISTENTION. PATIENT TRANSFERRED TO ER 6 STRETCHER. VITALS STABLE. COMFORT AND SAFETY MEASURES IN PLACE, AWAITING MD ORDERS.
[2017-05-14] MEDS ORDERED: FUROSEMIDE 40 MG/4 ML VIAL IV ONE (13:00)
[2017-05-14] MEDS ORDERED: FUROSEMIDE 40 MG/4 ML VIAL ONE (13:07)
[2017-05-14] MEDS ORDERED: ASPIRIN 81 MG TAB.CHEW ONE (13:20)
--- NOTE | 2017-05-14 13:20 | NUR ---
MEDICATED PATIENT PER MD ORDERS.
[2017-05-14] MEDS ORDERED: ASPIRIN 81 MG TAB.CHEW GT SCH (13:30)
--- NOTE | 2017-05-14 13:50 | NUR ---
MOISE CATH INSERTED PER MD ORDER. 225 ML OUTPUT, CLEAR YELLOW URINE. SPECIMEN COLLECTED AND SENT TO LAB FOR TESTING.
[2017-05-14 14:04] LABS: APPEARANCE,URINE Clear (CLEAR); BILIRUBIN,URINE Negative (NEGATIVE); BLOOD, URINE Negative Ery/uL (NEGATIVE); COLOR,URINE Yellow (YELLOW); KETONES,URINE Negative (NEGATIVE); LEUKOCYTE ESTERASE ,URINE Trace (NEGATIVE); NITRITE, URINE Negative (NEGATIVE); PROTEIN,URINE Negative (NEGATIVE); UGLUCOSE Negative (NEGATIVE); UROBILINOGEN,URINE 0.2 EU/dL (0.2)
[2017-05-14 14:12] LABS: BACTERIA,URINE Few /HPF (None Seen); MUCUS,URINE Few /LPF (None Seen); RBC,URINE 0-3 /HPF (0-2); SQUAMOUS EPITHELIAL CELL,UR Few /HPF (None Seen)
--- NOTE | 2017-05-14 14:16 | NUR ---
REPORT GIVEN TO RNNAIF. PATIENT TO BE ADMITTED TO [facility], 118-1.
--- NOTE | 2017-05-14 14:39 | NUR ---
PATIENT TRANSFERRED TO [facility] VIA STRETCHER, WITH RT, EMT, AND RN.
[2017-05-14 15:05] VITALS: BP 151/111
[2017-05-14] MEDS ORDERED: ZOLPIDEM TARTRATE 5 MG TABLET PO PRN (15:30)
[2017-05-14] MEDS ORDERED: Z GUARD REMEDY 2 OZ OINT TP PRN (15:30)
[2017-05-14] MEDS ORDERED: MORPHINE SULFATE INJ 2 MG/ML DISP.SYRIN IV PRN (15:30)
[2017-05-14] MEDS ORDERED: ACETAMINOPHEN 650 MG/SUPP.RECT RC PRN (15:30)
[2017-05-14] MEDS ORDERED: ONDANSETRON HCL/PF 4 MG/2 ML VIAL IVP PRN (15:30)
[2017-05-14 16:00] VITALS: BP 97/61
[2017-05-14] MEDS: ENOXAPARIN SODIUM 40 MG/0.4 ML DISP.SYRIN SQ SCH (16:00)
[2017-05-14] MEDS ORDERED: BUMETANIDE INJ 6 MG in IV NS 0.9% 36 ML IV ONE (16:00)
[2017-05-14] MEDS ORDERED: IV SET PRIMARY 1 EA INFUS.SET MC ONE ×2 (17:51→18:26)
[2017-05-14 18:00] VITALS: BP 100/63
[2017-05-14 18:38] LABS: CALCIUM, SERUM 9.1 mg/dL (8.5-10.1); MAGNESIUM 2.7 mg/dL (1.8-2.4); PHOSPHORUS 4.2 mg/dL (2.5-4.9); POTASSIUM 5.2 mmol/L (3.5-5.1)
--- NOTE | 2017-05-14 19:30 | NUR ---
RN INITIAL NOTE RECEIVED PT IN NO ACUTE DISTRESS IN BED. PT ALERT AND ABLE TO MAKE NEEDS KNOWN BY MOUTHING WORDS. PT IS ON MECHANICAL VENT VIA TRACH. TRACH SITE IS CLEAN DRY AND INTACT. PT TOLERATING VENT SETTING WELL WITH AC 18, TV 550, FIO2 50, PEEP 0. PT IS ON MONITOR WITH 100% V PACING ON THE MONITOR. PT HAS GTUBE THAT IS CLEAN DRY INTACT AND PATENT WITH 0ML RESIDUAL. PT HAS LAC 18G LINE THAT CLEAN DRY INTACT AND PATENT WITH BUMEX @ 10ML/HR. BED IN LOW LOCK POSITION WITH RAILS UP X 2. CALL LIGHT WITHIN REACH AND ALL SAFETY MEASURES ENSURED AND CARRIED OUT. WILL CONTINUE TO MONITOR FOR ANY CHANGES IN CONDITION.
[2017-05-14 19:42] VITALS: BP 97/68
[2017-05-14 20:00] VITALS: BP 97/68
[2017-05-15] VITALS (8 sets, daily range): BP systolic 98–127; BP diastolic 36–71
--- NOTE | 2017-05-15 06:00 | NUR ---
RN NOTE UNABLE TO WEIGH PT DUE TO BED NOT ZEROED PRIOR TO PT TRANSFERRED TO BED. WILL ENDORSE TO AM RN.
[2017-05-15 06:16] LABS: BASOPHILS # (AUTO) 0.1 /CMM (0.0-0.2); BASOPHILS % (AUTO) 0.6 % (0.0-2.0); EOSINOPHILS # (AUTO) 0.2 /CMM (0.0-0.7); EOSINOPHILS % (AUTO) 2.7 % (0.0-6.0); HEMATOCRIT 29 % (33-45); HEMOGLOBIN 9.3 g/dL (11.5-14.8); LYMPHOCYTES # (AUTO) 0.6 /CMM (0.8-4.8); LYMPHOCYTES % (AUTO) 7.1 % (20.0-44.0); MEAN CORPUSCULAR HEMOGLOBIN 29 PG (26.0-33.0); MEAN CORPUSCULAR HGB CONC 33 g/dl (31.0-36.0); MEAN CORPUSCULAR VOLUME 90 fL (82-100); MONOCYTES # (AUTO) 0.6 /CMM (0.1-1.30); MONOCYTES % (AUTO) 7.4 % (2.0-12.0); NEUTROPHILS # (AUTO) 6.9 /CMM (1.8-8.9); NEUTROPHILS % (AUTO) 82.2 % (43.0-81.0); PLATELET COUNT (AUTO) 326 /CMM (150-450); RDW COEFFICIENT OF VARIATION 19.4 (11.5-15.0); RED BLOOD CELL COUNT(AUTO) 3.16 MIL/uL (4.0-5.2); WHITE BLOOD COUNT (AUTO) 8.4 K/uL (4.3-11.0)
[2017-05-15 06:42] LABS: ALBUMIN 2.2 g/dL (3.4-5.0); BILIRUBIN,TOTAL 0.6 mg/dL (0.2-1.0); CALCIUM, SERUM 9.2 mg/dL (8.5-10.1); CREATININE 0.9 mg/dL (0.6-1.3); MAGNESIUM 2.8 mg/dL (1.8-2.4); PHOSPHORUS 3.6 mg/dL (2.5-4.9); POTASSIUM 4.6 mmol/L (3.5-5.1); TOTAL PROTEIN, SERUM 7.2 g/dL (6.4-8.2)
[2017-05-15 06:47] LABS: THYROID STIMULATING HORMONE 6.899 uIU/mL (0.358-3.74)
--- NOTE | 2017-05-15 07:21 | NUR ---
RN CLOSING NOTE PT REMAINS IN NO ACUTE DISTRESS IN BED. PT DID NOT HAVE ANY SIGNIFICANT CHANGE IN CONDITION DURING SHIFT. PT TOLERATING VENT SETTING WELL. WILL ENDORSE TO AM RN FOR CONTINUITY OF CARE.
--- NOTE | 2017-05-15 08:38 | NUR ---
WOUND CARE CONSULT: PT PRESENTS WITH LARGE HARD ABDOMEN AND SCARRING TO SACRUM. PT ON FIRST STEP MATTRESS. ALL SKIN PROTECTION MEASURES IN PLACE AND DISCUSSED WITH NURSING STAFF. MD IN AGREEMENT WITH PLAN OF CARE. WILL SEE PRN.
[2017-05-15] MEDS: ASPIRIN EC 81 MG TABLET.DR PO SCH (09:07)
--- NOTE | 2017-05-15 10:28 | NUR ---
RT CALLED TO ASSIST WITH MOVING PATIENT TO ROOM 120-1 WITH NO PROBLEMS. VENT PLUGGED INTO RED OUTLET. ALARMS VERIFIED AND AUDIBLE. AMBU BAG AT [facility].
--- NOTE | 2017-05-15 10:35 | NUR ---
RN INITIAL NOTE RECEIVED PT IN NO ACUTE DISTRESS IN BED. PT ALERT AND ABLE TO MAKE NEEDS KNOWN BY MOUTHING WORDS. PT IS ON MECHANICAL VENT VIA TRACH. TRACH SITE IS CLEAN DRY AND INTACT. PT TOLERATING VENT SETTING WELL WITH AC 18, TV 550, FIO2 50, PEEP 0. PT IS ON MONITOR WITH 100% V PACING ON THE MONITOR. PT HAS GTUBE THAT IS CLEAN DRY INTACT AND PATENT WITH 0ML RESIDUAL. PT HAS LAC 18G LINE THAT CLEAN DRY INTACT AND PATENT SL. BED IN LOW LOCK POSITION WITH RAILS UP X 2. CALL LIGHT WITHIN REACH AND ALL SAFETY MEASURES ENSURED AND CARRIED OUT. WILL CONTINUE TO MONITOR FOR ANY CHANGES IN CONDITION.
[2017-05-15 13:55] LABS: ABG BASE EXCESS 1.1 mmol/L; ABG OXYGEN SATURATION 97.1 % (92.0-98.5); ABG PCO2 34.7 mmHg (35.0-45.0); ABG PH 7.468 (7.350-7.450); ABG PO2 98.8 mmHg (75.0-100.0); AaDO2 218.7 mmHg; COHb 1.1 % (0.5-1.5); MetHb 0.7 % (0.0-1.5); O2Hb 95.4 % (94.0-97.0); PEEP,BG 5 cm H2O; SITE, ABG Left Brachial; VT, ABG 550 mL
--- NOTE | 2017-05-15 18:21 | NUR ---
RN CLOSING NOTE PT REMAINS IN NO ACUTE DISTRESS IN BED. PT DID NOT HAVE ANY SIGNIFICANT CHANGE IN CONDITION DURING SHIFT. PT TOLERATING VENT SETTING WELL. WILL ENDORSE TO PM RN FOR CONTINUITY OF CARE.
--- NOTE | 2017-05-15 19:30 | NUR ---
FIRE CAPTAIN INITIAL NOTES RECEIVED PATIENT AWAKE A/OX2, VENT DEPENDENT ABLE TO MOUTH WORDS. DENIES PAIN OR DISCOMFORT. DENIES SOB. NO RESPIRATORY DISTRESS NOTED WITH VENT SETTING AC 18, TV 550, PEEP 5, FIO2 50%. ON TELE MONITOR AV PACING WITH OCC VPACING. GT PATENT AND INTACT. ISOLATION PRECAUTIONS OBSERVED. NOTED WITH ABDOMINAL DISTENTION, SOFT, NON-TENDER. WITH F/C PATENT AND INTACT. HOB ELEVATED. SIDE RAILS UP AND LOCKED. BED KEPT AT LOWEST POSITION. CALL LIGHT KEPT WITHIN EASY REACH. WILL CONTINUE TO MONITOR.
[2017-05-15] MEDS: NUTREN PULMONARY 1,000 ML BAG GT PRN (19:39)
[2017-05-15] MEDS: ENOXAPARIN SODIUM 40 MG/0.4 ML DISP.SYRIN SQ SCH (21:33)
[2017-05-16] VITALS: BP 100/63
[2017-05-16 04:00] VITALS: BP 102/65
--- NOTE | 2017-05-16 07:34 | NUR ---
ANIMAL SCIENCE INSTRUCTOR CLOSING NOTES NO SIGNIFICANT CHANGES OVERNIGHT. NOTED WITH >100ML RESIDUAL IN AM. FEEDING TURNED OFF. NO RESPIRATORY DISTRESS NOTED. TOLERATING GTF. F/C PATENT AND INTACT. PATIENT KEPT CLEAN AND DRY. TURNED AND REPOSITIONED Q2 AND PRN. HOB ELEVATED. SIDE RAILS UP AND LOCKED. BED KEPT AT LOWEST POSITION. CALL LIGHT KEPT WITHIN EASY REACH. CONTINUITY OF CARE ENDORSED TO AM NURSE.
[2017-05-16 08:00] VITALS: BP 100/44
[2017-05-16] MEDS: ASPIRIN EC 81 MG TABLET.DR PO SCH (09:34)
[2017-05-16 12:00] VITALS: BP 109/61
[2017-05-16 16:00] VITALS: BP 101/42
--- NOTE | 2017-05-16 18:27 | NUR ---
RN CLOSING NOTE PT REMAINS IN NO ACUTE DISTRESS IN BED. PT DID NOT HAVE ANY SIGNIFICANT CHANGE IN CONDITION DURING SHIFT. PT OBSERVED TO HAVE FECAL IMPACTION IMPACTION REMOVED PATIENT VERBALIZED FEELING BETTER AND MORE COMFORTABLE.PT TOLERATING VENT SETTING WELL. WILL ENDORSE TO PM RN FOR CONTINUITY OF CARE.
--- NOTE | 2017-05-16 19:36 | NUR ---
PT COMFORTABLE ON CURRENT VENT SETTINGS. NO CHANGES MADE. ALARMS ARE SET AND AUDIBLE PER POLICY. AMBU BAG BEDSIDE. CONTINUE CURRENT THERAPY. Addendum: 05/17/17 at 0442 by SIERRA BROWER RT Amended: Links added.
[2017-05-16 20:00] VITALS: BP 99/54
[2017-05-16] MEDS ORDERED: SECONDARY IV SET 1 EA INFUS.SET MC ONE (20:37)
[2017-05-16] MEDS ORDERED: IV SET PRIMARY PUMP SET 1 EA INFUS.SET MC ONE (20:37)
[2017-05-16] MEDS ORDERED: IV NS 0.9% 250 ML IV ONE (20:38)
[2017-05-16] MEDS: NUTREN PULMONARY 1,000 ML BAG GT PRN (20:57)
[2017-05-16] MEDS ORDERED: BUMETANIDE INJ 6 MG in IV NS 0.9% 36 ML IV ONE (21:00)
[2017-05-16] MEDS: ENOXAPARIN SODIUM 40 MG/0.4 ML DISP.SYRIN SQ SCH (21:08)
[2017-05-17] VITALS: BP 99/57
[2017-05-17 04:00] VITALS: BP 118/62
[2017-05-17 07:19] LABS: CALCIUM, SERUM 9.4 mg/dL (8.5-10.1); CREATININE 0.9 mg/dL (0.6-1.3); MAGNESIUM 2.6 mg/dL (1.8-2.4); PHOSPHORUS 3.1 mg/dL (2.5-4.9); POTASSIUM 3.7 mmol/L (3.5-5.1)
--- NOTE | 2017-05-17 07:27 | NUR ---
SURGICAL FORCEPS FABRICATOR CLOSING NOTES NO SIGNIFICANT CHANGES OVERNIGHT. TOLERATING CURRENT VENT SETTINGS. ALL NEEDS ANTICIPATED AND MET. KEPT CLEAN AND DRY. TURNED AND REPOSITIONED Q2 AND PRN. F/C INTACT, DRAINING BY GRAVITY. HOB ELEVATED. SIDE RAILS UP AND LOCKED. BED KEPT AT LOWES POSITION. CALL LIGHT KEPT WITHIN EASY REACH. WILL ENDORSE CONTINUITY OF CARE TO AM NURSE.
[2017-05-17 07:32] LABS: BASOPHILS % (AUTO) 0.6 % (0.0-2.0); EOSINOPHILS # (AUTO) 0.4 /CMM (0.0-0.7); HEMATOCRIT 32 % (33-45); HEMOGLOBIN 10.1 g/dL (11.5-14.8); LYMPHOCYTES # (AUTO) 0.6 /CMM (0.8-4.8); LYMPHOCYTES % (AUTO) 8.9 % (20.0-44.0); MEAN CORPUSCULAR HEMOGLOBIN 29 PG (26.0-33.0); MEAN CORPUSCULAR HGB CONC 32 g/dl (31.0-36.0); MEAN CORPUSCULAR VOLUME 93 fL (82-100); MONOCYTES # (AUTO) 0.4 /CMM (0.1-1.30); MONOCYTES % (AUTO) 5.9 % (2.0-12.0); NEUTROPHILS # (AUTO) 5.7 /CMM (1.8-8.9); NEUTROPHILS % (AUTO) 79.6 % (43.0-81.0); PLATELET COUNT (AUTO) 337 /CMM (150-450); RDW COEFFICIENT OF VARIATION 19.9 (11.5-15.0); RED BLOOD CELL COUNT(AUTO) 3.46 MIL/uL (4.0-5.2); WHITE BLOOD COUNT (AUTO) 7.2 K/uL (4.3-11.0)
--- NOTE | 2017-05-17 07:33 | NUR ---
UNABLE TO WEIGHT PATIENT, BED NEEDS TO BE ZEROED OUT.
--- NOTE | 2017-05-17 07:35 | NUR ---
RT PATIENT REC'D TRACHED ON [facility] VENT WITH SETTINGS SET BY MD MARCO ANTONIO JOHN. VENT ALARMS CHECKED + AUDIBLE. VENT PLUGGED INTO RED OUTLET. TRACH SECURE + IN PROPER POSITION. COARSE BILAT B/S HEARD. SX'D WITH SMALL AMT PALE SEMI-THICK SECRETIONS. PATIENT APPEARS COMFORTABLE AND IN NO DISTRESS AT THIS TIME. AMBU BAG AT HOB. CONT CURRENT PLAN OF RESP CARE. Addendum: 05/17/17 at 0910 by LAYLA MIMS RT Amended: Links added.
[2017-05-17 08:00] VITALS: BP 104/57
--- NOTE | 2017-05-17 08:00 | NUR ---
RN INITIAL NOTE RECEIVED PT IN NO ACUTE DISTRESS IN BED. PT ALERT AND ABLE TO MAKE NEEDS KNOWN BY MOUTHING WORDS. PT IS ON MECHANICAL VENT VIA TRACH. TRACH SITE IS CLEAN DRY AND INTACT. PT TOLERATING VENT SETTING WELL WITH AC 18, TV 550, FIO2 40, PEEP 0. PT IS ON MONITOR WITH 100% V PACING ON THE MONITOR. PT HAS GTUBE THAT IS CLEAN DRY INTACT AND PATENT WITH 0ML RESIDUAL. PT HAS LAC 18G LINE THAT CLEAN DRY INTACT AND PATENT SL. BED IN LOW LOCK POSITION WITH RAILS UP X 2. CALL LIGHT WITHIN REACH AND ALL SAFETY MEASURES ENSURED AND CARRIED OUT. WILL CONTINUE TO MONITOR FOR ANY CHANGES IN CONDITION.
[2017-05-17] MEDS: ASPIRIN EC 81 MG TABLET.DR PO SCH (09:35)
[2017-05-17 12:00] VITALS: BP 114/68
--- NOTE | 2017-05-17 12:00 | NUR ---
RN NOTE PATIENT GIVEN ICE CHIPS AND ORAL CARE. CHARGE NURSE SOON NOTIFIED
[2017-05-17 16:00] VITALS: BP 115/59
--- NOTE | 2017-05-17 16:00 | NUR ---
RN NOTE PATIENT GIVEN ICE CHIPS AND ORAL CARE THROUGHOUT THE DAY PATIENT TOLERATED WELL CHARGE NURSE SOON NOTIFIED , NURSING STAFF WILL CONTINUE TO FOLLOW.
--- NOTE | 2017-05-17 17:30 | NUR ---
RN NOTE PT G-TUBE FEEDINGS PLACED ON HOLD DUE TO 200 CC OF RESIDUAL NOTED. HOB ELEVATED NURSING STAFF WILL HOLD FEEDINGS FOR THE REMAINDER OF THE SHIFT AND ENDORSE TO STRUCTURAL RIGGER TO RESTART AND CONTINUE TO MONITOR THE PATIENT FEEDINGS
--- NOTE | 2017-05-17 18:00 | NUR ---
RN NOTE PATIENT REFUSED BED BATH HOWEVER PATIENT HAS ALLOWED NURSING STAFF TO PREFORM ORAL CARE AND CHECK FOR A STOOL OR NEED FOR CHANGE OF DIAPER. PATIENT CLEAN AT THIS TIME NO ISSUES OR COMPLAINTS WILL ENDORSE TO ONCOMING SHIFT. PT GIVEN NEW GOWN AND ALLOWED NURSING STAFF TO WASH HER FACE
--- NOTE | 2017-05-17 19:30 | NUR ---
TILE SETTER SUPERVISOR INITIAL NOTE RECEIVED REPORT FROM USAMA FARIAS. PT IN BED. A/A/O X3 MOUTHS WELSH WORDS. CHRONIC VENT TRACH TOLERATING CURRENT VENT SETTINGS. PT IS ABLE TO ORALLY SUCTION SELF. BOWEL SOUNDS PRESENT, GT PATENT AND INTACT WITH 30CC RESIDUAL. PULSES PRESENT. IV PATENT AND INTACT. REPOSITIONED FOR COMFORT. BED IN LOW LOCKED POSITION CALL LIGHT WITHIN REACH. WILL CONTINUE TO MONITOR.
[2017-05-17 20:00] VITALS: BP 102/59
[2017-05-17] MEDS: ENOXAPARIN SODIUM 40 MG/0.4 ML DISP.SYRIN SQ SCH (20:52)
[2017-05-18] VITALS: BP 107/54
[2017-05-18 04:00] VITALS: BP 103/55
[2017-05-18 07:16] LABS: BASOPHILS % (AUTO) 0.2 % (0.0-2.0); EOSINOPHILS # (AUTO) 0.6 /CMM (0.0-0.7); EOSINOPHILS % (AUTO) 7.8 % (0.0-6.0); HEMATOCRIT 31 % (33-45); HEMOGLOBIN 9.6 g/dL (11.5-14.8); LYMPHOCYTES # (AUTO) 0.7 /CMM (0.8-4.8); LYMPHOCYTES % (AUTO) 9.3 % (20.0-44.0); MEAN CORPUSCULAR HEMOGLOBIN 29 PG (26.0-33.0); MEAN CORPUSCULAR HGB CONC 31 g/dl (31.0-36.0); MEAN CORPUSCULAR VOLUME 94 fL (82-100); MONOCYTES # (AUTO) 0.5 /CMM (0.1-1.30); NEUTROPHILS # (AUTO) 5.5 /CMM (1.8-8.9); NEUTROPHILS % (AUTO) 75.7 % (43.0-81.0); PLATELET COUNT (AUTO) 319 /CMM (150-450); RDW COEFFICIENT OF VARIATION 20.4 (11.5-15.0); RED BLOOD CELL COUNT(AUTO) 3.29 MIL/uL (4.0-5.2); WHITE BLOOD COUNT (AUTO) 7.3 K/uL (4.3-11.0)
[2017-05-18 07:53] LABS: CALCIUM, SERUM 9.4 mg/dL (8.5-10.1); CREATININE 0.8 mg/dL (0.6-1.3); MAGNESIUM 2.2 mg/dL (1.8-2.4); PHOSPHORUS 2.6 mg/dL (2.5-4.9); POTASSIUM 3.5 mmol/L (3.5-5.1)
[2017-05-18 08:00] VITALS: BP 99/44
[2017-05-18] MEDS: ASPIRIN EC 81 MG TABLET.DR PO SCH (08:25)
--- NOTE | 2017-05-18 08:48 | NUR ---
RN NOTES; NOTIFIED (DR. HANSON) ABOUT LAB RESULTS (SODIUM, CHLORIDE,BUN, TROPONIN LEVEL. RECOMMENDED TROP RE-DRAW, SAID NNO AT THIS TIME.
--- NOTE | 2017-05-18 08:58 | NUR ---
Patient received trached on mechanical vent. Breath sounds equal bilateral. Vent plugged into red outlet and alarms set and functioning. Ambu bag at the bed side.
[2017-05-18 12:00] VITALS: BP 108/51
[2017-05-18] MEDS ORDERED: MUPIROCIN OINT 2% 22 GM TUBE TP SCH (13:30)
[2017-05-18] MEDS ORDERED: BUME1TAB4 GT (14:01)
[2017-05-18] MEDS ORDERED: POTA20PA3 PO (14:02)
[2017-05-18] MEDS ORDERED: [UNRECOGNIZED DRUG - CODE] GT (14:05)
[2017-05-18 16:00] VITALS: BP 104/40
--- NOTE | 2017-05-18 16:42 | NUR ---
discharge note order for d/c acknowledged. patient provided with d/c education, medication list and all paper work. patient cannot provide immunization history- per [facility] ferruler, will get back to me about pneumo vaccine- not administered here. wound photos taken however unable to print d/t technical difficulties, elementary secretary aware. skin all intact, witnessed by charge nurse Estefany, only blanchable redness on sacrum. all belongings checked with two RN and d/c paper work signed by 2 RN- patient unable. Full report given to JARRETT Simon [phone]. informed mallika (sister) that patient is returning to [facility].
[2017-05-18 17:01] VITALS: BP 104/40
--- NOTE | 2017-05-18 17:30 | NUR ---
PATIENT LEFT IN STABLE CONSIDITION ACCOMPANIED BY 2 EMT AND 1 RT
== END 2017-05-18 17:35 | DRG 208 ==
LOC: ER 10:40 → TELE1 13:14 → TELE-TD 15:30 → TELE1 05-15 10:27
PROVIDERS: ADMIT Nurse Practitioner Acute Care; ATTEND Nurse Practitioner Acute Care
PROC: 5A1945Z Respiratory Ventilation, 24-96 Consecutive Hours (ICD-10-PCS; principal; 2017-05-14)
DX: J96.11 Chronic respiratory failure with hypoxia (principal); I21.4 Non-ST elevation (NSTEMI) myocardial infarction; I50.33 Acute on chronic diastolic (congestive) heart failure; N17.9 Acute kidney failure, unspecified; Z99.11 Dependence on respirator [ventilator] status; D68.59 Other primary thrombophilia; G71.0 Muscular dystrophy; K92.2 Gastrointestinal hemorrhage, unspecified; E87.0 Hyperosmolality and hypernatremia; I42.9 Cardiomyopathy, unspecified; J96.12 Chronic respiratory failure with hypercapnia; Z93.0 Tracheostomy status; D63.8 Anemia in other chronic diseases classified elsewhere; E03.9 Hypothyroidism, unspecified; E11.22 Type 2 diabetes mellitus with diabetic chronic kidney disease; F32.9 Major depressive disorder, single episode, unspecified; I25.10 Atherosclerotic heart disease of native coronary artery without angina pectoris; Z93.1 Gastrostomy status; Z95.0 Presence of cardiac pacemaker; I48.91 Unspecified atrial fibrillation; I11.0 Hypertensive heart disease with heart failure; R60.1 Generalized edema; E87.5 Hyperkalemia; K74.60 Unspecified cirrhosis of liver; R13.10 Dysphagia, unspecified; Z86.718 Personal history of other venous thrombosis and embolism
CPT/HCPCS: 31720; 36415; 36600; 71010-TC; 76770-TC; 80048-TC; 80053-TC; 80061-TC; 80076-TC; 81000-TC; 82803-TC; 83540-TC; 83735-TC; 83880; 84100-TC; 84443-TC; 84484-TC; 85025-TC; 85730-TC; 87081-TC; 94003-TC; A4216; A4606; A6253; J1650; J1940; J2270; J3490; J7050